=== PATIENT | female | born 1975 | race Caucasian/White ===

== ENCOUNTER → 2023-06-08 17:13 | Outpatient (REF) | payer OTHER, SELFPAY | LOC: HWWDC 17:13 | PROVIDERS: ATTENDING PHYSICIAN Obstetrics & Gynecology Gynecology; FAMILY PHYSICIAN Physician Assistant Medical | DX: Z12.31 Encounter for screening mammogram for malignant neoplasm of breast (principal) | CPT/HCPCS: 77063; 77067 ==

== ENCOUNTER → 2023-06-11 16:36 | Outpatient (REF) | payer OTHER, SELFPAY | LOC: RAD 16:36 | PROVIDERS: ATTENDING PHYSICIAN Internal Medicine Gastroenterology; FAMILY PHYSICIAN Physician Assistant Medical | DX: K59.09 Other constipation (principal) | CPT/HCPCS: 74018 ==

== ENCOUNTER 2023-08-02 15:38 | Emergency (ER) | payer OTHER, SELFPAY ==
[2023-08-02 15:47] VITALS: BP 166/106
--- NOTE | 2023-08-02 18:11 | ED.GENMED ---
History of Present Illness
General
Chief Complaint: Musculo-Skeletal Complaint
Time Seen by Provider: 08/02/23 17:43
Travel History
Have you had any contact with someone who has COVID-19?: No
Do you have any symptoms of coronavirus? Fever > 100 degrees, chills, cough, shortness of breath, sore throat, loss of taste or smell, muscle aches, or headache?: No
History of Present Illness
History of Present Illness:
48-year-old female presents to the emergency department for evaluation of gradually worsening left-sided neck pain. Initial injury occurred after a fall 2 weeks ago, the same chiropractor throughout the duration of the past 2 weeks but feels as
though the symptoms are worsening despite chiropractic adjustments. Denies any radiating symptoms to the upper extremities, denies any headache or vision changes. She is unable to rotate due to pain, notes that the pain worsens with swallowing as
well. Has been taking her oxycodone and ibuprofen without relief
Review of Systems
Review of Systems
Allergies reviewed?: Yes
All Other Systems: ROS reviewed and negative except as documented in HPI and ROS
Phy Exam
Physical Exam
Physical Exam:
GEN: Well appearing, NAD, WDWN
HEENT: Oral mucosa moist, no scleral icterus. No midline cervical spine tenderness. Diffuse paraspinous muscle spasm bilaterally extending to the trapezius. Limited range of motion secondary to pain
Cardiac: Regular rate
Lung: No respiratory distress, no tachypnea
MSK: No gross deformity or injuries
Skin: Good color, no pallor or jaundice, no rashes
Neuro: AO x3, moves all extremities freely, bilateral upper extremity strength is 5 out of 5 in all larios
Psych: Calm, cooperative
Course
Orders/Labs/Results
Orders:
Orders
08/02/23 18:11
Acetaminophen [Tylenol] 1,000 mg PO NOW STA
Diazepam [Valium] 5 mg PO NOW STA
Ketorolac [Toradol] 30 mg IM NOW STA
08/02/23 19:25
CT Cervical Spine W/o Iv Contr Urgent
Comment:
Reason For Exam: neck injury
Vital Signs
Initial and Last Documented VS:
Initial Vital Signs
Temp Pulse Resp BP Pulse Ox
98.2 F 97 18 166/106 100
08/02/23 15:47 08/02/23 15:47 08/02/23 15:47 08/02/23 15:47 08/02/23 15:47
Last Documented Vital Signs
Temp Pulse Resp BP Pulse Ox
98.2 F 97 18 166/106 100
08/02/23 15:47 08/02/23 15:47 08/02/23 15:47 08/02/23 15:47 08/02/23 15:47
MDM/Problems Addressed
MDM/Problems Addressed:
Initial medical therapy did not provide significant relief and thus imaging was obtained to rule out occult fracture. Fortunately imaging was negative. Patient's pain ultimately did improve, likely paracervical muscle spasm. Discussed supportive
care, recommend outpatient PT. She has no clinical signs or symptoms of neurologic emergency such as vertebral or carotid dissection
*Critical Care Note
Total Time (30-74mins, 75-104mins- exclusive of procedures): Not Applicable
ED Attending Note
-
Portions of this chart may have been created with voice recognition software.� Occasional wrong word or��sound alike� substitutions may have occurred due to the inherent limitations of voice recognition software.
Discharge Plan
Departure
Patient Disposition: Home (Routine Discharge)
Date of Disposition: 08/02/23
Time of Disposition: 20:10
Patient with high blood pressure during this ER visit?: No
Discharge Problem:
Acute cervical myofascial strain
Instructions: Cervical Muscle Strain (DC)
Prescriptions:
New
methylprednisolone [Medrol (Kevin)] 4 mg tablets,dose pack
See Rx Instructions .ROUTE .COMPLEX Qty: 21 0RF
Rx Instructions:
orally per package directions
diazepam 5 mg tablet
5 mg PO BID-TID PRN (Reason: muscle spasm) Qty: 12 0RF
No Action
PRENACARE TABLET
EVENING PRIMROSE OIL
Referrals:
Cande Villalta PA-C [Family Provider] -
Interventions
Interventions:
*Risk Screen - Suicide Last Done: 08/02/23 20:12
*General Assessment Last Done: 08/02/23 20:12
*Neglect/Abuse Screening Last Done: 08/02/23 20:12
ED- Fall Risk Assessment Last Done: 08/02/23 20:12
*ED COVID-19 Vaccine History Last Done: 08/02/23 15:47
*Nursing Disposition Last Done: 08/02/23 20:16
ED-Musculoskeletal Assessment Last Done: 08/02/23 18:31
Discharge Date and Time
Discharge Date/Time: 08/02/23 20:17
Print Language: MONGOLIAN
[2023-08-02] MEDS: TYLENOL 1000 MG PO (18:20)
[2023-08-02] MEDS: VALIUM 5 MG PO (18:20)
[2023-08-02] MEDS: TORADOL 30 MG IM (18:21)
== END 2023-08-02 20:17 | disposition home or self-care (01) ==
LOC: EMR 15:38
PROVIDERS: EMERGENCY PHYSICIAN Student in an Organized Health Care Education/Training Program; FAMILY PHYSICIAN Physician Assistant Medical
DX: M54.2 Cervicalgia (principal)
CPT/HCPCS: 99284; 96372; 72125

== ENCOUNTER 2023-08-03 22:30 | Emergency (ER) | payer OTHER, SELFPAY ==
[2023-08-03 22:39] VITALS: BP 174/106
[2023-08-04 00:36] VITALS: BMI 34.2
[2023-08-04 00:37] VITALS: BP 147/86
--- NOTE | 2023-08-04 02:42 | ED.GENMED ---
History of Present Illness
<JUSTYNA Head - Last Filed: 08/06/23 17:49>
General
Chief Complaint: Musculo-Skeletal Complaint
Source: patient
Exam Limitations: none
Time Seen by Provider: 08/04/23 01:38
Nursing documentation reviewed up to this point in time: agreed with
Travel History
Have you had any contact with someone who has COVID-19?: No
Do you have any symptoms of coronavirus? Fever > 100 degrees, chills, cough, shortness of breath, sore throat, loss of taste or smell, muscle aches, or headache?: No
History of Present Illness
History of Present Illness:
Patient is a 48 old female who presents to the ER with left-sided neck pain. Patient was seen here yesterday. She had negative imaging yesterday .she recently fell several weeks ago and has been to a chiropractor but after the last several
adjustments pain seem to worsen. She complains of pain to the left side of her neck and reports she could barely move her neck. She came yesterday received Valium and was sent home with Valium and steroids but pain is not improving. She reports
tonight she took her meds at 9 PM including Valium and Tylenol but pain worsened. She continues to deny any neurological complaints denies any headache dizziness numbness tingling weakness in extremities. Denies any visual deficits. Patient
complains of pain with movement of the neck.
Review of Systems
<JUSTYNA Head - Last Filed: 08/06/23 17:49>
Review of Systems
Allergies reviewed?: Yes
All Other Systems: ROS reviewed and negative except as documented in HPI and ROS
Constitutional: Reports no symptoms
Musculoskeletal: Reports neck pain
Skin: Reports no symptoms
Neurological: Denies dizzy, headache, weakness or numbness
Psychiatric: Reports no symptoms
Phy Exam
<JUSTYNA Head - Last Filed: 08/06/23 17:49>
General Physical Exam
General Presentation: no apparent distress
General age: appears stated age
General Skin: warm and dry
General Habitus: normal
General Mental: alert
General Hydration: appears well hydrated
Neurological Exam
Neurological Exam: alert, oriented x3 and other (Normal sensation bilateral upper extremities normal guard range strength bilaterally)
Musculoskeletal Exam
Musculoskeletal Exam: other (Normal inspection to neck + neck pain with range of motion to the left and right; non tender on exam )
Skin Exam
Skin Exam: normal color and warm/dry
Psychiatric Exam
Psychiatric Exam: normal mood/affect
Course
<JUSTYNA Head - Last Filed: 08/06/23 17:49>
Orders/Labs/Results
Orders:
Orders
08/04/23 02:41
Acetaminophen [Tylenol] 1,000 mg PO NOW STA
Ketorolac [Toradol] 30 mg IM NOW STA
Lidocaine [Lidocaine 4% Patch] 1 patch TOPICAL NOW STA
diazePAM [Valium Injection] 5 mg IM NOW STA
Vital Signs
Initial and Last Documented VS:
Initial Vital Signs
Temp Pulse Resp BP Pulse Ox
98.7 F 100 18 174/106 97
08/03/23 22:39 08/03/23 22:39 08/03/23 22:39 08/03/23 22:39 08/03/23 22:39
Last Documented Vital Signs
Temp Pulse Resp BP Pulse Ox
98.7 F 86 16 123/89 98
08/03/23 22:39 08/04/23 04:11 08/04/23 04:11 08/04/23 04:11 08/04/23 04:11
<Rolando Gutierrez MD - Last Filed: 08/08/23 09:04>
Orders/Labs/Results
Orders:
Orders
08/04/23 02:41
Acetaminophen [Tylenol] 1,000 mg PO NOW STA
Ketorolac [Toradol] 30 mg IM NOW STA
Lidocaine [Lidocaine 4% Patch] 1 patch TOPICAL NOW STA
diazePAM [Valium Injection] 5 mg IM NOW STA
Vital Signs
Initial and Last Documented VS:
Initial Vital Signs
Temp Pulse Resp BP Pulse Ox
98.7 F 100 18 174/106 97
08/03/23 22:39 08/03/23 22:39 08/03/23 22:39 08/03/23 22:39 08/03/23 22:39
Last Documented Vital Signs
Temp Pulse Resp BP Pulse Ox
98.7 F 86 16 123/89 98
08/03/23 22:39 08/04/23 04:11 08/04/23 04:11 08/04/23 04:11 08/04/23 04:11
<JUSTYNA Head - Last Filed: 08/06/23 17:49>
MDM/Problems Addressed
Differential Diagnosis Includes:
not limited to: torticollis
MDM/Problems Addressed:
Symptoms are consistent with torticollis. Will try doses IM of Valium Toradol and will use lidocaine patch and Tylenol and will reeval
<JUSTYNA Head - Last Filed: 08/06/23 17:49>
*Critical Care Note
Total Time (30-74mins, 75-104mins- exclusive of procedures): Not Applicable
<Rolando Gutierrez MD - Last Filed: 08/08/23 09:04>
Update Note
Update Note:
Pt reports sig improvement in symptoms after treatment. Pt with likely musculoskeletal pain, exacerbated after chiropractical treatment. Pt otherwise is afebrile, hemodynamically stable, and neurologically intact at time of discharged. Advised
NSAIDs, warm compress, along with provided medications as needed, along with PCP f/u, including potential MRI c-spine as outpatient, if symptoms persist. Advised return to ED with any neurological deficit.
ED Attending Note
<JUSTYNA Head - Last Filed: 08/06/23 17:49>
-
Portions of this chart may have been created with voice recognition software.� Occasional wrong word or��sound alike� substitutions may have occurred due to the inherent limitations of voice recognition software.
Discharge Plan
Departure
Patient Disposition: Home (Routine Discharge)
Date of Disposition: 08/04/23
Time of Disposition: 04:30
Patient with high blood pressure during this ER visit?: Yes
Condition: Fair
Covid-19: Not Applicable
Discharge Problem:
Acquired torticollis
Instructions: Torticollis (DC)
Prescriptions:
New
oxycodone-acetaminophen [Percocet] 5-325 mg Tablet
1 tab PO Q6HPRN PRN (Reason: pain) Qty: 12 0RF
No Action
PRENACARE TABLET
EVENING PRIMROSE OIL
methylprednisolone [Medrol (Kevin)] 4 mg tablets,dose pack
See Rx Instructions .ROUTE .COMPLEX Qty: 21 0RF
Rx Instructions:
orally per package directions
diazepam 5 mg tablet
5 mg PO BID-TID PRN (Reason: muscle spasm) Qty: 12 0RF
Referrals:
Cande Villalta PA-C [Family Provider] -
Stand Alone Forms: Return to Work
Activity Restrictions/Additional Instructions:
Continue Valium and steroid pack continue warm compresses several times a day and do gentle range of motion exercises as discussed return if any worsening of symptoms.
Follow-up with your family doctor for re-evaluation, including potential MRI as outpatient, if symptoms persist. Your prescription has been sent electronically to [facility] pharmacy on [address] in [place].
Interventions
Interventions:
*Risk Screen - Suicide Last Done: 08/04/23 00:36
*General Assessment Last Done: 08/04/23 00:36
*Neglect/Abuse Screening Last Done: 08/04/23 00:36
*ED COVID-19 Vaccine History Last Done: 08/03/23 22:41
*Nursing Disposition Last Done: 08/04/23 04:39
ED-Musculoskeletal Assessment Last Done: 08/04/23 00:37
Discharge Date and Time
Discharge Date/Time: 08/04/23 04:41
Print Language: LIBYAN
[2023-08-04] MEDS: TYLENOL 1000 MG PO (03:11)
[2023-08-04] MEDS: LIDOCAINE 4% PATCH 1 PATCH TOPICAL (03:12)
[2023-08-04] MEDS: TORADOL 30 MG IM (03:14)
[2023-08-04] MEDS: VALIUM INJECTION 5 MG IM (03:16)
[2023-08-04 04:11] VITALS: BP 123/89
== END 2023-08-04 04:41 | disposition home or self-care (01) ==
LOC: EMR 22:30
PROVIDERS: EMERGENCY PHYSICIAN Student in an Organized Health Care Education/Training Program; FAMILY PHYSICIAN Physician Assistant Medical
DX: M43.6 Torticollis (principal); R03.0 Elevated blood-pressure reading, without diagnosis of hypertension
CPT/HCPCS: 99284; 96372 ×2

== ENCOUNTER 2023-09-17 05:57 | Emergency (ER) | payer OTHER, SELFPAY ==
[2023-09-17 05:58] VITALS: BP 152/112
--- NOTE | 2023-09-17 06:42 | ED.GENMED ---
History of Present Illness
General
Chief Complaint: Skin Problem
Time Seen by Provider: 09/17/23 06:41
Travel History
Have you had any contact with someone who has COVID-19?: No
Do you have any symptoms of coronavirus? Fever > 100 degrees, chills, cough, shortness of breath, sore throat, loss of taste or smell, muscle aches, or headache?: No
History of Present Illness
History of Present Illness:
HPI: Patient presents with pain to the right thigh. This started last evening as right hip pain. She had trouble sleeping all night. She does not think it is necessarily muscular and feels as a deep kind of bony pain. There was some faint
erythema noted. She has not taken any NSAIDs yet (has not eaten). She denies any other symptoms. She states she did fall on the area of concern a few months ago but has not had ongoing symptoms since that time.
EXAM:
GENERAL: Well appearing in no distress
HEENT: Moist oral mucosa
CARDIOVASCULAR: No murmurs, normal heart rate, regular rhythm, No chest wall tenderness
PULMONARY: No respiratory distress, breath sounds are clear and equal
ABDOMEN: Soft with no peritoneal signs, no tenderness
NEUROLOGIC: Excellent strength all extremities, no coordination deficits
PSYCHIATRIC: Appropriate mental status, normal insight and judgement
EXTREMITIES: Moderate tenderness to the right thigh at the midpoint laterally, excellent DP pulse to the right foot, there is no calf swelling, some slightly decreased active range of motion at the right hip due to pain
SKIN: Very faint if any erythema noted to the mid lateral right thigh without any significant
TIME OF INITIAL ENCOUNTER: 6:50 AM
NUMBER AND COMPLEXITY OF PROBLEMS ADDRESSED AT THE ENCOUNTER
� Chronic conditions affecting care: Chronic neck and back pain
� Acute Exacerbation and/or Progression of Chronic Illness: This is an acute problem
� Differential Diagnosis includes: Highly doubt femur/hip fracture, DVT, soft tissue hematoma, bone mass
AMOUNT AND/OR COMPLEXITY OF DATA TO BE REVIEWED AND ANALYZED
� I performed an independent evaluation of and my interpretation is:
EKG:
CT:
X-rays: I personally reviewed x-ray of the right femur and see no abnormality
Laboratory Studies:
Other: Ultrasound imaging negative for DVT
� Review of other/old records: The patient was here with torticollis 1 month ago
� Clinical information was obtained by an independent historian: I spoke to the at bedside
� Prescriptions/Medications Considered but not given:
� Further testing considered but not performed:
RISK OF COMPLICATIONS AND/OR MORBIDITY OR MORTALITY OF PATIENT MANAGEMENT
� Social determinants of health affecting care:Lives at home with
� Discussion with other providers:
� Escalation of care including admission/observation vs risk of discharge considered: The patient was given IM Toradol here. X-ray of the femur and DVT study obtained�both of which are unremarkable. Suspect muscular etiology.
Phy Exam
Physical Exam
Physical Exam:
See HPI
Course
Orders/Labs/Results
Orders:
Orders
09/17/23 06:48
Ketorolac [Toradol] 30 mg IM NOW STA
CR Femur - Right Min 2 Vw Urgent
Comment:
Reason For Exam: severe R thigh pain
Legs, Right US [US Periph Venous LOWER Ext RT] Urgent
Comment:
Reason For Exam: R thigh pain
Vital Signs
Initial and Last Documented VS:
Initial Vital Signs
Temp Pulse Resp BP Pulse Ox
98.5 F 88 18 152/112 99
09/17/23 05:58 09/17/23 05:58 09/17/23 05:58 09/17/23 05:58 09/17/23 05:58
Last Documented Vital Signs
Temp Pulse Resp BP Pulse Ox
98.5 F 88 16 152/112 99
09/17/23 05:58 09/17/23 05:58 09/17/23 07:40 09/17/23 05:58 09/17/23 05:58
*Critical Care Note
Total Time (30-74mins, 75-104mins- exclusive of procedures): Not Applicable
ED Attending Note
-
Portions of this chart may have been created with voice recognition software.� Occasional wrong word or��sound alike� substitutions may have occurred due to the inherent limitations of voice recognition software.
Discharge Plan
Departure
Patient Disposition: Home (Routine Discharge)
Date of Disposition: 09/17/23
Time of Disposition: 07:29
Patient with high blood pressure during this ER visit?: Yes
Discharge Problem:
Musculoskeletal pain of right lower extremity
Instructions: Lower Extremity Muscle Strain (DC), BLOOD PRESSURE
Prescriptions:
No Action
PRENACARE TABLET
EVENING PRIMROSE OIL
methylprednisolone [Medrol (Kevin)] 4 mg tablets,dose pack
See Rx Instructions .ROUTE .COMPLEX Qty: 21 0RF
Rx Instructions:
orally per package directions
diazepam 5 mg tablet
5 mg PO BID-TID PRN (Reason: muscle spasm) Qty: 12 0RF
oxycodone-acetaminophen [Percocet] 5-325 mg Tablet
1 tab PO Q6HPRN PRN (Reason: pain) Qty: 12 0RF
Referrals:
Cande Villalta PA-C [Family Provider] -
Activity Restrictions/Additional Instructions:
Please follow-up your primary care doctor. I recommend 3-4 [id number] ibuprofen (Motrin) every 8 hours with food for a few days. Return here if worse.
Interventions
Interventions:
*Risk Screen - Suicide Last Done: 09/17/23 07:56
*General Assessment Last Done: 09/17/23 05:58
*Neglect/Abuse Screening Last Done: 09/17/23 07:56
ED- Fall Risk Assessment Last Done: 09/17/23 07:45
*Nursing Disposition Last Done: 09/17/23 07:56
ED-Skin Assessment Last Done: 09/17/23 07:45
Discharge Date and Time
Discharge Date/Time: 09/17/23 07:56
Print Language: ETHIOPIAN
[2023-09-17] MEDS: TORADOL 30 MG IM (07:46)
== END 2023-09-17 07:56 | disposition home or self-care (01) ==
LOC: EMR 05:57
PROVIDERS: EMERGENCY PHYSICIAN Emergency Medicine; FAMILY PHYSICIAN Physician Assistant Medical
DX: M79.18 Myalgia, other site (principal); M79.651 Pain in right thigh; M25.551 Pain in right hip
CPT/HCPCS: 99284; 96374; 73552; 93971

== ENCOUNTER → 2024-05-18 11:37 | Outpatient (REF) | payer OTHER, SELFPAY | LOC: DHSLP 11:37 | PROVIDERS: ATTENDING PHYSICIAN Internal Medicine Critical Care Medicine; FAMILY PHYSICIAN Physician Assistant Medical | DX: G47.30 Sleep apnea, unspecified (principal); R06.83 Snoring | CPT/HCPCS: 95800 ==

== ENCOUNTER → 2024-06-17 15:18 | Outpatient (REF) | payer OTHER, SELFPAY | LOC: HWWDC 15:18 | PROVIDERS: ATTENDING PHYSICIAN Obstetrics & Gynecology Gynecology; FAMILY PHYSICIAN Physician Assistant Medical | DX: Z12.31 Encounter for screening mammogram for malignant neoplasm of breast (principal) | CPT/HCPCS: 77063; 77067 ==

== ENCOUNTER → 2024-07-04 09:56 | Outpatient (REF) | payer OTHER, SELFPAY | LOC: WDC 09:56 | PROVIDERS: ATTENDING PHYSICIAN Obstetrics & Gynecology Gynecology; FAMILY PHYSICIAN Physician Assistant Medical | DX: R92.8 Other abnormal and inconclusive findings on diagnostic imaging of breast (principal) | CPT/HCPCS: 76642; 77065 ==

== ENCOUNTER → 2024-12-16 10:07 | Outpatient (REF) | payer OTHER, SELFPAY | LOC: HWWDC 10:07 | PROVIDERS: ATTENDING PHYSICIAN Obstetrics & Gynecology Gynecology; FAMILY PHYSICIAN Physician Assistant Medical | DX: R92.8 Other abnormal and inconclusive findings on diagnostic imaging of breast (principal); Z12.31 Encounter for screening mammogram for malignant neoplasm of breast | CPT/HCPCS: 77061; 77065 ==